=== PATIENT | male | born 1955 | race African-American/Black ===

== ENCOUNTER 2017-04-19 05:23 | Inpatient (IN) | payer MEDICARE, MEDICAID ==
[~2017-04-19] VITALS: Ht 175.3 cm; Wt 121.6 kg
[2017-04-19] VITALS (49 sets, daily range): BP systolic 126–190; BP diastolic 37–94
[~2017-04-19 05:23] MED LIST: ALBU18HF2 IH; AMLO10TA80 PO; ASPI-1073 PO; BRIN8DRO BOTHEYE; DIPH50CA47 PO; ERYT1OIN6 OP; FLUO20TA29 PO; GABA800T PO; HYDR-519 PO; IPRA0.2S51 IH; KETO5DRO37 BOTHEYE; LATA2.5D2 BOTHEYE; LEVE500T19 PO; LORA10TA7 PO; METF10002 PO; OMEP40CA34 PO; QUET50TA21 PO
[2017-04-19] MEDS ORDERED: GELATIN SPONGE,ABSORBABLE SZ 100 ONE (05:55)
[2017-04-19] MEDS ORDERED: LIDOCAINE HCL/PF 1% 10 MG/ML 5ML VIAL ONE (05:55)
[2017-04-19] MEDS ORDERED: THROMBIN (BOVINE) 5000 UNITS/VIAL TOP ONE (05:55)
[2017-04-19] MEDS ORDERED: BACITRACIN 50,000 UNITS/VIAL ONE (05:56)
[2017-04-19] MEDS ORDERED: BUPIVACAINE HCL/EPINEPHRINE/PF 0.5%/0.0005 10ML ONE (05:56)
[2017-04-19] MEDS ORDERED: NORMAL SALINE 0.9% 10 ML SYR ONE (05:56)
[2017-04-19] MEDS ORDERED: SODIUM CHLORIDE 0.9% 1,000 ML IV SCH (06:06)
[2017-04-19] MEDS ORDERED: MIDAZOLAM HCL 2 MG/2 ML VIAL ONE (06:20)
[2017-04-19] MEDS ORDERED: HYDROMORPHONE HCL/PF 2MG/ML (OR) ONE (06:20)
[2017-04-19] MEDS ORDERED: FENTANYL CITRATE/PF 50MCG/ML 5ML VIAL ONE (06:20)
[2017-04-19] MEDS ORDERED: LIDOCAINE HCL 1%/EPI 1:200,000 30 ML VIAL ONE (07:04)
[2017-04-19] MEDS ORDERED: MORP30TA66 PO (07:19)
[2017-04-19] MEDS ORDERED: IPRATROPIUM/ALBUTEROL 0.5-3(2.5)MG/3ML NEB INH PRN (08:30)
[2017-04-19] MEDS ORDERED: ACETAMINOPHEN 325MG TABLET PO PRN (08:30)
[2017-04-19] MEDS ORDERED: ONDANSETRON HCL 4MG/2ML VIAL IV PRN (08:30)
[2017-04-19] MEDS ORDERED: DEXT 5%/LACTATED RINGERS 1,000 ML IV ONE (08:30)
[2017-04-19] MEDS: NICARDIPINE 100 MG in SODIUM CHLORIDE 0.9% 60 ML IV PRN ×2 (09:40→20:49)
[2017-04-19] MEDS ORDERED: ONDANSETRON INJ IV PRN (10:00)
[2017-04-19] MEDS ORDERED: HYDROMORPHONE PCA 10MG/50ML IV PRN (10:00)
[2017-04-19] MEDS ORDERED: DIPHENHYDRAMINE INJ IV PRN (10:00)
[2017-04-19] MEDS ORDERED: NALOXONE INJ IV PRN (10:00)
[2017-04-19] MEDS ORDERED: CLONIDINE 0.1MG TABLET PO PRN (10:45)
[2017-04-19] MEDS ORDERED: BISACODYL 5MG TABLET PO PRN (10:45)
[2017-04-19] MEDS ORDERED: DEXTROSE 50% WATER 50ML SYRINGE IV PRN (10:45)
[2017-04-19] MEDS ORDERED: MORPHINE SULFATE 4 MG/ML CPJ (NOT FOR IM USE) IV PRN (10:45)
[2017-04-19] MEDS: BLOOD SUGAR DIAGNOSTIC STRIP TEST SCH ×3 (11:30→20:40)
[2017-04-19] MEDS: DOCUSATE SODIUM 250MG CAPSULE PO SCH (13:06)
[2017-04-19] MEDS: AMLODIPINE 10MG TABLET PO SCH (13:06)
[2017-04-19] MEDS: DEXAMETHASONE 4MG/ML 1ML VIAL IV SCH ×3 (13:07→23:14)
[2017-04-19] MEDS: INSULIN LISPRO 100 UNITS/ML SUBCUT SCH ×3 (13:10→20:36)
[2017-04-19] MEDS ORDERED: CEFAZOLIN SODIUM 1000MG/VIAL IV SCH (14:00)
[2017-04-19] MEDS: CEFAZOLIN 1000MG PREMIX 50 ML IV SCH ×2 (15:16→23:14)
[2017-04-19 17:22] LABS: BASOPHILS % 0.3 % (0.0-2.0); EOSINOPHILS % 0.9 % (0.0-5.0); HEMATOCRIT. 43.6 % (42.0-52.0); HEMOGLOBIN. 14.1 g/dL (14.0-18.0); LYMPHOCYTES % 11.1 % (20.0-50.0); MEAN CORPUSCULAR HEMOGLOBIN 26.1 pg (28.0-32.0); MEAN CORPUSCULAR VOLUME 80.8 fL (80.0-94.0); MEAN PLATELET VOLUME 8.7 fl (7.4-10.4); MONOCYTES % 3.4 % (2.0-8.0); NEUTROPHILS % 84.3 % (40.0-76.0); PLATELET 327 x1000/uL (130-400); RED CELL DISTRIBUTION WIDTH 16.9 % (11.6-14.6)
[2017-04-19] MEDS: LEVETIRACETAM 500MG TABLET PO SCH (17:27)
[2017-04-19 17:38] LABS: CHLORIDE 100 mEq/L (98-107)
[2017-04-19] MEDS: LATANOPROST 0.005% OPHTH DROPS 2.5ML BOTHEYE SCH (20:36)
[2017-04-19] MEDS: LORATADINE 10MG TABLET PO PRN (21:52)
[2017-04-19] MEDS: DIPHENHYDRAMINE 50MG/ML VIAL IV PRN (22:05)
[2017-04-19] MEDS: QUETIAPINE FUMARATE 50MG TABLET PO SCH (22:05)
[2017-04-20] VITALS (46 sets, daily range): BP systolic 113–173; BP diastolic 32–140
[2017-04-20] MEDS: NICARDIPINE 100 MG in SODIUM CHLORIDE 0.9% 60 ML IV PRN (04:58)
[2017-04-20 06:02] LABS: BASOPHILS % 0.4 % (0.0-2.0); HEMATOCRIT. 42.8 % (42.0-52.0); HEMOGLOBIN. 14.3 g/dL (14.0-18.0); MEAN CORPUSCULAR HEMOGLOBIN 26.7 pg (28.0-32.0); MEAN CORPUSCULAR VOLUME 80.2 fL (80.0-94.0); MEAN PLATELET VOLUME 8.8 fl (7.4-10.4); MONOCYTES % 2.5 % (2.0-8.0); NEUTROPHILS % 87.1 % (40.0-76.0); PLATELET 312 x1000/uL (130-400); RED BLOOD CELL COUNT 5.34 mill/uL (4.7-6.1); RED CELL DISTRIBUTION WIDTH 16.5 % (11.6-14.6)
[2017-04-20] MEDS: BLOOD SUGAR DIAGNOSTIC STRIP TEST SCH ×4 (06:15→20:22)
[2017-04-20] MEDS: DEXAMETHASONE 4MG/ML 1ML VIAL IV SCH ×2 (06:19→12:00)
[2017-04-20] MEDS: INSULIN LISPRO 100 UNITS/ML SUBCUT SCH ×4 (06:21→21:26)
[2017-04-20 06:26] LABS: CHLORIDE 99 mEq/L (98-107)
[2017-04-20] MEDS: DEXT 5%/LACTATED RINGERS 1,000 ML IV SCH ×2 (06:46→22:51)
[2017-04-20] MEDS: AMLODIPINE 10MG TABLET PO SCH (08:58)
[2017-04-20] MEDS: LEVETIRACETAM 500MG TABLET PO SCH ×2 (08:58→17:02)
[2017-04-20] MEDS: DOCUSATE SODIUM 250MG CAPSULE PO SCH (09:00)
[2017-04-20] MEDS ORDERED: NON FORMULARY PATIENT HOME MED EA XX SCH (09:30)
[2017-04-20] MEDS: HYDRALAZINE HCL 25MG TABLET PO SCH ×2 (11:34→17:43)
[2017-04-20] MEDS: HYDROCODONE/ACETAMINOPHEN 10/325MG TABLET PO PRN ×3 (11:35→21:15)
[2017-04-20] MEDS: LORATADINE 10MG TABLET PO PRN (11:35)
[2017-04-20] MEDS: KETOROLAC TROMETHAMINE 0.4% OPHTH 5ML EACHEYE SCH ×2 (17:41→20:17)
[2017-04-20] MEDS: DORZOLAMIDE 2% OPHTH 10 ML BOTTLE BOTHEYE SCH (20:15)
[2017-04-20] MEDS: BRIMONIDINE 0.2% OPHTH DROPS 5ML BOTHEYE SCH (20:16)
[2017-04-20] MEDS: LATANOPROST 0.005% OPHTH DROPS 2.5ML BOTHEYE SCH (20:16)
[2017-04-20] MEDS: QUETIAPINE FUMARATE 50MG TABLET PO SCH (20:18)
[2017-04-20] MEDS ORDERED: QUETIAPINE FUMARATE 50MG TABLET PO SCH (21:00)
[2017-04-20] MEDS: DIPHENHYDRAMINE 50MG/ML VIAL IV PRN (21:14)
[2017-04-20] MEDS: INSULIN GLARGINE UD 100 UNITS/ML SYR SUBCUT SCH (22:51)
[2017-04-21] VITALS: BP 159/69
[2017-04-21] MEDS: HYDRALAZINE HCL 25MG TABLET PO SCH ×2 (01:10→10:03)
[2017-04-21 04:00] VITALS: BP 158/71
[2017-04-21 06:36] LABS: BASOPHILS % 0.3 % (0.0-2.0); EOSINOPHILS % 0.1 % (0.0-5.0); HEMATOCRIT. 43.3 % (42.0-52.0); HEMOGLOBIN. 14.2 g/dL (14.0-18.0); LYMPHOCYTES % 14.5 % (20.0-50.0); MEAN CORPUSCULAR HEMOGLOBIN 26.1 pg (28.0-32.0); MEAN CORPUSCULAR VOLUME 79.9 fL (80.0-94.0); MEAN PLATELET VOLUME 9.2 fl (7.4-10.4); MONOCYTES % 8.7 % (2.0-8.0); NEUTROPHILS % 76.4 % (40.0-76.0); PLATELET 323 x1000/uL (130-400); RED BLOOD CELL COUNT 5.42 mill/uL (4.7-6.1); RED CELL DISTRIBUTION WIDTH 16.9 % (11.6-14.6)
[2017-04-21 07:01] LABS: CHLORIDE 101 mEq/L (98-107)
[2017-04-21] MEDS: BLOOD SUGAR DIAGNOSTIC STRIP TEST SCH (07:20)
[2017-04-21 08:00] VITALS: BP 131/90
[2017-04-21] MEDS: INSULIN LISPRO 100 UNITS/ML SUBCUT SCH (08:53)
[2017-04-21] MEDS: DORZOLAMIDE 2% OPHTH 10 ML BOTTLE BOTHEYE SCH (08:53)
[2017-04-21] MEDS: BRIMONIDINE 0.2% OPHTH DROPS 5ML BOTHEYE SCH (08:54)
[2017-04-21] MEDS: DOCUSATE SODIUM 250MG CAPSULE PO SCH (08:55)
[2017-04-21] MEDS: LEVETIRACETAM 500MG TABLET PO SCH (08:55)
[2017-04-21] MEDS: KETOROLAC TROMETHAMINE 0.4% OPHTH 5ML EACHEYE SCH (08:55)
[2017-04-21] MEDS: AMLODIPINE 10MG TABLET PO SCH (08:57)
[2017-04-21] MEDS: HYDROCODONE/ACETAMINOPHEN 10/325MG TABLET PO PRN (10:02)
[2017-04-21] MEDS: INSULIN GLARGINE UD 100 UNITS/ML SYR SUBCUT SCH (10:04)
[2017-04-21 10:19] VITALS: BP 131/90
== END 2017-04-21 11:09 | disposition home or self-care (01) | DRG 471 ==
LOC: OR 05:23 → MICUSO 05:24 → 6EST 04-20 18:10
PROVIDERS: ADMIT Internal Medicine; ATTEND Internal Medicine
PROC: 0RG10K0 Fusion of Cervical Vertebral Joint with Nonautologous Tissue Substitute, Anterior Approach, Anterior Column, Open Approach (ICD-10-PCS; 2017-04-19)
PROC: 4A11X4G Monitoring of Peripheral Nervous Electrical Activity, Intraoperative, External Approach (ICD-10-PCS; 2017-04-19)
PROC: 0RB30ZZ Excision of Cervical Vertebral Disc, Open Approach (ICD-10-PCS; principal; 2017-04-19 06:30)
DX: M47.12 Other spondylosis with myelopathy, cervical region (principal); G82.50 Quadriplegia, unspecified; G95.20 Unspecified cord compression; M48.02 Spinal stenosis, cervical region; C61 Malignant neoplasm of prostate; E11.9 Type 2 diabetes mellitus without complications; E78.5 Hyperlipidemia, unspecified; G56.00 Carpal tunnel syndrome, unspecified upper limb; H40.9 Unspecified glaucoma; I10 Essential (primary) hypertension; J45.909 Unspecified asthma, uncomplicated; M25.78 Osteophyte, vertebrae; Z86.79 Personal history of other diseases of the circulatory system; Z79.82 Long term (current) use of aspirin; Z79.899 Other long term (current) drug therapy
CPT/HCPCS: 36415; 71045; 72040; 80048; 82962; 83036; 85025; 86850; 86900; 88304; 88311; 97116; 97163; 97166; 97535; A4216; J0171; J0690; J1100; J1170; J1200; J1815; J2250; J2370; J2405; J2704; J2710; J3010; J3490; J7030; J7050; J7121

== ENCOUNTER → 2019-07-26 | Outpatient (CLI) | payer MEDICARE, MEDICAID ==
[~2019-07-26] MED LIST changes: +ATOR10TA69 PO; +HYDR-4009 PO; -HYDR-519 PO; -IPRA0.2S51 IH; +METF-416 PO; -METF10002 PO; +MORP30CP13 PO; -OMEP40CA34 PO; +QUET300T2 PO; -QUET50TA21 PO; +TAMS-11 PO; +TAMS0.4C31 PO
== END | disposition home or self-care (01) ==
LOC: LAB 14:16
PROVIDERS: ATTEND Neurological Surgery
DX: Z01.818 Encounter for other preprocedural examination (principal); Z11.59 Encounter for screening for other viral diseases
CPT/HCPCS: U0003-CS

== ENCOUNTER 2019-07-29 08:15 | Inpatient (IN) | payer MEDICARE, MEDICAID ==
[2019-07-29] VITALS (38 sets, daily range): BP systolic 135–186; BP diastolic 47–110
[~2019-07-29] VITALS: Ht 175.3 cm; Wt 109.8 kg
[~2019-07-29 08:15] MED LIST changes: -HYDR-4009 PO; -MORP30CP13 PO; -QUET300T2 PO
[2019-07-29] MEDS ORDERED: SODIUM CHLORIDE 0.9% 1,000 ML IV SCH (10:21)
[2019-07-29] MEDS ORDERED: BACITRACIN 50,000 UNITS/VIAL ONE (10:38)
[2019-07-29] MEDS ORDERED: LIDOCAINE HCL/EPINEPHRINE 1%-EPI 1:100,000 20 ML VIAL ONE (10:38)
[2019-07-29] MEDS ORDERED: THROMBIN (BOVINE) 5000 UNITS/VIAL TOP ONE (10:38)
[2019-07-29] MEDS ORDERED: MORP30CP13 PO (12:18)
[2019-07-29] MEDS ORDERED: HYDR-4009 PO (12:18)
[2019-07-29] MEDS ORDERED: QUET300T2 PO (12:18)
[2019-07-29] MEDS ORDERED: NEOSTIGMINE METHYLSULFATE 1MG/ML 10 ML VIAL ONE (12:34)
[2019-07-29] MEDS ORDERED: ROCURONIUM BROMIDE 10MG/ML VIAL 5ML IV ONE ×3 (12:34→13:17)
[2019-07-29] MEDS ORDERED: FENTANYL CITRATE/PF 50MCG/ML 2ML VIAL ONE ×2 (12:34→12:36)
[2019-07-29] MEDS ORDERED: PROPOFOL 200MG/20ML VIAL IV ONE (12:35)
[2019-07-29] MEDS ORDERED: GLYCOPYRROLATE 0.2 MG/ML 2ML VIAL ONE (12:35)
[2019-07-29] MEDS ORDERED: MIDAZOLAM HCL 2 MG/2 ML VIAL ONE (12:35)
[2019-07-29] MEDS ORDERED: DEXAMETHASONE 4MG/ML 1ML VIAL ONE (12:36)
[2019-07-29] MEDS ORDERED: ONDANSETRON HCL 4MG/2ML INJ ONE (12:36)
[2019-07-29] MEDS ORDERED: LABETALOL 5MG/ML SYR 20 MG/4 ML SYRINGE IV ONE (13:17)
[2019-07-29] MEDS ORDERED: HYDROMORPHONE HCL/PF 2MG/ML (OR) ONE (13:21)
[2019-07-29] MEDS ORDERED: ONDANSETRON HCL 4MG/2ML INJ IV PRN (13:45)
[2019-07-29] MEDS ORDERED: HYDROMORPHONE HCL/PF 2MG/ML CPJ IV PRN (13:45)
[2019-07-29] MEDS ORDERED: MEPERIDINE HCL/PF 25MG/ML CPJ IV PRN (13:45)
[2019-07-29] MEDS ORDERED: SODIUM CHLORIDE 0.9% 10ML VIAL ONE (14:28)
[2019-07-29] MEDS ORDERED: LIDOCAINE HCL/PF 1% 10 MG/ML 5ML VIAL ONE (14:28)
[2019-07-29] MEDS ORDERED: CEFAZOLIN SODIUM 1000MG/VIAL ONE (14:28)
[2019-07-29] MEDS ORDERED: EPHEDRINE SULFATE 50MG/ML VIAL ONE (14:28)
[2019-07-29] MEDS ORDERED: STERILE WATER FOR INJECTION 10ML VIAL ONE (14:29)
[2019-07-29] MEDS: LABETALOL 5MG/ML SYR 20 MG/4 ML SYRINGE IV PRN ×2 (15:21→15:46)
[2019-07-29] MEDS ORDERED: MORPHINE SULFATE 4 MG/ML CPJ (NOT FOR IM USE) IV PRN (15:45)
[2019-07-29] MEDS ORDERED: DEXT 5%/LACTATED RINGERS 1,000 ML IV SCH (15:45)
[2019-07-29] MEDS: DEXT 5%/LACTATED RINGERS 1,000 ML IV SCH (15:50)
[2019-07-29] MEDS: NICARDIPINE 100 MG in SODIUM CHLORIDE 0.9% 60 ML IV PRN ×2 (16:06→22:46)
[2019-07-29] MEDS ORDERED: NALOXONE INJ IV PRN (16:30)
[2019-07-29] MEDS ORDERED: ONDANSETRON INJ IV PRN (16:30)
[2019-07-29] MEDS ORDERED: HYDROMORPHONE PCA 10MG/50ML IV PRN (16:30)
[2019-07-29] MEDS: MORPHINE SULFATE 4 MG/ML CPJ (NOT FOR IM USE) IV PRN ×3 (17:25→23:11)
[2019-07-29] MEDS ORDERED: DEXTROSE 50% WATER 50ML SYRINGE IV PRN (17:45)
[2019-07-29] MEDS: DEXAMETHASONE 4MG/ML 1ML VIAL IV SCH ×2 (18:05→23:10)
[2019-07-29 19:44] LABS: BASOPHILS % 0.4 % (0.0-2.0); EOSINOPHILS % 0.3 % (0.0-5.0); HEMATOCRIT. 43.2 % (42.0-52.0); HEMOGLOBIN. 14.2 g/dL (14.0-18.0); LYMPHOCYTES % 8.2 % (20.0-50.0); MEAN CORPUSCULAR HEMOGLOBIN 26.6 pg (28.0-32.0); MEAN CORPUSCULAR VOLUME 80.6 fL (80.0-94.0); MONOCYTES % 1.4 % (2.0-8.0); NEUTROPHILS % 89.7 % (40.0-76.0); RED BLOOD CELL COUNT 5.36 mill/uL (4.7-6.1); RED CELL DISTRIBUTION WIDTH 17.8 % (11.6-14.6)
[2019-07-29 19:45] LABS: CHLORIDE 104 mEq/L (98-107)
[2019-07-29] MEDS ORDERED: IPRATROPIUM/ALBUTEROL 0.5-3(2.5)MG/3ML NEB HHN PRN (19:45)
[2019-07-29] MEDS: BLOOD SUGAR DIAGNOSTIC STRIP TEST SCH (20:06)
[2019-07-29] MEDS: HYDRALAZINE 20MG/ML VIAL IV PRN (20:10)
[2019-07-29] MEDS: INSULIN LISPRO 100 UNITS/ML SUBCUT SCH (20:11)
[2019-07-29] MEDS ORDERED: LEVETIRACETAM 500 MG in SODIUM CHLORIDE 0.9% 100 ML IV SCH (20:30)
[2019-07-29] MEDS: CEFAZOLIN 1000MG PREMIX 50 ML IV SCH (21:10)
[2019-07-29] MEDS: LEVETIRACETAM 500MG PREMIX 100 ML IV SCH (21:11)
[2019-07-29] MEDS: DIPHENHYDRAMINE INJ IV PRN (21:18)
[2019-07-29] MEDS ORDERED: CEFAZOLIN SODIUM 1000MG/VIAL IV SCH (22:00)
[2019-07-29 22:11] LABS: MEAN PLATELET VOLUME 8.4 fl (7.4-10.4); PLATELET 300 x1000/uL (130-400)
[2019-07-30] VITALS (90 sets, daily range): BP systolic 66–173; BP diastolic 31–106
[2019-07-30] MEDS ORDERED: HYDRALAZINE 20MG/ML VIAL IV SCH
[2019-07-30] MEDS: DIPHENHYDRAMINE INJ IV PRN ×2 (01:11→20:42)
[2019-07-30] MEDS: MORPHINE SULFATE 4 MG/ML CPJ (NOT FOR IM USE) IV PRN ×5 (01:11→20:21)
[2019-07-30] MEDS: DEXT 5%/LACTATED RINGERS 1,000 ML IV SCH ×3 (01:58→21:23)
[2019-07-30] MEDS: HYDRALAZINE 20MG/ML VIAL IV PRN ×3 (02:04→11:57)
[2019-07-30] MEDS: CEFAZOLIN 1000MG PREMIX 50 ML IV SCH ×3 (05:15→21:22)
[2019-07-30] MEDS: NICARDIPINE 100 MG in SODIUM CHLORIDE 0.9% 60 ML IV PRN ×2 (05:15→12:23)
[2019-07-30] MEDS: DEXAMETHASONE 4MG/ML 1ML VIAL IV SCH ×3 (05:16→17:21)
[2019-07-30 06:01] LABS: BASOPHILS % 0.1 % (0.0-2.0); CHLORIDE 104 mEq/L (98-107); HEMATOCRIT. 40.1 % (42.0-52.0); HEMOGLOBIN. 13.3 g/dL (14.0-18.0); LYMPHOCYTES % 7.5 % (20.0-50.0); MEAN CORPUSCULAR HEMOGLOBIN 26.9 pg (28.0-32.0); MEAN PLATELET VOLUME 8.8 fl (7.4-10.4); MONOCYTES % 3.6 % (2.0-8.0); NEUTROPHILS % 88.8 % (40.0-76.0); PLATELET 141 x1000/uL (130-400); RED BLOOD CELL COUNT 4.96 mill/uL (4.7-6.1); RED CELL DISTRIBUTION WIDTH 17.5 % (11.6-14.6)
[2019-07-30] MEDS: BLOOD SUGAR DIAGNOSTIC STRIP TEST SCH ×4 (06:01→20:12)
[2019-07-30] MEDS: INSULIN LISPRO 100 UNITS/ML SUBCUT SCH ×4 (06:02→20:43)
[2019-07-30] MEDS: LEVETIRACETAM 500MG PREMIX 100 ML IV SCH (08:43)
[2019-07-30] MEDS ORDERED: LEVETIRACETAM 500MG TABLET PO SCH (11:15)
[2019-07-30] MEDS: AMLODIPINE 10MG TABLET PO SCH ×2 (11:35→20:20)
[2019-07-30] MEDS: HYDROCODONE/ACETAMINOPHEN 10/325MG TABLET PO PRN ×3 (11:35→21:23)
[2019-07-30] MEDS: LORATADINE 10MG TABLET PO SCH (11:35)
[2019-07-30] MEDS: LEVETIRACETAM 500MG TABLET PO SCH (17:22)
[2019-07-30] MEDS: ATORVASTATIN CALCIUM 10MG TABLET PO SCH (20:20)
[2019-07-30] MEDS: TAMSULOSIN HCL 0.4MG SR CAPSULE PO SCH (20:20)
[2019-07-30] MEDS: QUETIAPINE FUMARATE 50MG TABLET PO SCH (20:23)
[2019-07-31] VITALS (73 sets, daily range): BP systolic 105–169; BP diastolic 53–92
[2019-07-31] MEDS: MORPHINE SULFATE 4 MG/ML CPJ (NOT FOR IM USE) IV PRN ×3 (00:30→22:20)
[2019-07-31] MEDS: HYDROCODONE/ACETAMINOPHEN 10/325MG TABLET PO PRN ×4 (01:31→17:58)
[2019-07-31 05:36] LABS: HEMATOCRIT. 38.6 % (42.0-52.0); MEAN CORPUSCULAR HEMOGLOBIN 26.9 pg (28.0-32.0); MEAN CORPUSCULAR VOLUME 79.7 fL (80.0-94.0); MEAN PLATELET VOLUME 8.2 fl (7.4-10.4); PLATELET 291 x1000/uL (130-400); RED BLOOD CELL COUNT 4.85 mill/uL (4.7-6.1); RED CELL DISTRIBUTION WIDTH 17.2 % (11.6-14.6)
[2019-07-31] MEDS: BLOOD SUGAR DIAGNOSTIC STRIP TEST SCH ×4 (05:40→21:00)
[2019-07-31 05:47] LABS: CHLORIDE 103 mEq/L (98-107)
[2019-07-31] MEDS: INSULIN LISPRO 100 UNITS/ML SUBCUT SCH ×4 (06:02→22:17)
[2019-07-31] MEDS: LORATADINE 10MG TABLET PO SCH (09:10)
[2019-07-31] MEDS: DEXT 5%/LACTATED RINGERS 1,000 ML IV SCH (09:10)
[2019-07-31] MEDS: LEVETIRACETAM 500MG TABLET PO SCH ×2 (09:12→17:57)
[2019-07-31] MEDS: AMLODIPINE 10MG TABLET PO SCH ×2 (09:12→22:00)
[2019-07-31] MEDS: DOCUSATE SODIUM 100MG CAPSULE PO SCH (12:12)
[2019-07-31 13:14] LABS: PLATELET ESTIMATE NORMAL
[2019-07-31 19:43] LABS: CLARITY URINE CLEAR (CLEAR); COLOR URINE YELLOW (YELLOW); KETONES URINE NEGATIVE (NEGATIVE); LEUKOCYTE ESTERASE URINE NEGATIVE (NEGATIVE); NITRITE URINE NEGATIVE (NEGATIVE); OCCULT BLOOD URINE NEGATIVE (NEGATIVE); PROTEIN URINE NEGATIVE (NEGATIVE); SPECIFIC GRAVITY URINE 1.009 (1.005-1.030); UROBILINOGEN URINE 0.2 E.U./dL (0.2-1.0)
[2019-07-31] MEDS ORDERED: QUETIAPINE FUMARATE 50MG TABLET PO SCH (21:00)
[2019-07-31] MEDS ORDERED: HYDRALAZINE 10 MG in SODIUM CHLORIDE 0.9% 49.5 ML IV PRN (21:15)
[2019-07-31] MEDS: TAMSULOSIN HCL 0.4MG SR CAPSULE PO SCH (22:00)
[2019-07-31] MEDS: ATORVASTATIN CALCIUM 10MG TABLET PO SCH (22:01)
[2019-07-31] MEDS: QUETIAPINE FUMARATE 50MG TABLET PO SCH (22:02)
[2019-08-01 04:00] VITALS: BP 164/77
[2019-08-01] MEDS: BLOOD SUGAR DIAGNOSTIC STRIP TEST SCH ×4 (06:25→21:27)
[2019-08-01 06:48] LABS: CHLORIDE 104 mEq/L (98-107)
[2019-08-01 06:57] LABS: BASOPHILS % 0.3 % (0.0-2.0); EOSINOPHILS % 0.4 % (0.0-5.0); HEMATOCRIT. 41.4 % (42.0-52.0); HEMOGLOBIN. 14.1 g/dL (14.0-18.0); LYMPHOCYTES % 21.6 % (20.0-50.0); MEAN CORPUSCULAR VOLUME 79.5 fL (80.0-94.0); MEAN PLATELET VOLUME 8.4 fl (7.4-10.4); MONOCYTES % 10.4 % (2.0-8.0); NEUTROPHILS % 67.3 % (40.0-76.0); PLATELET 315 x1000/uL (130-400); RED BLOOD CELL COUNT 5.21 mill/uL (4.7-6.1); RED CELL DISTRIBUTION WIDTH 17.2 % (11.6-14.6)
[2019-08-01 08:00] VITALS: BP 121/77
[2019-08-01] MEDS: INSULIN LISPRO 100 UNITS/ML SUBCUT SCH ×4 (08:49→21:36)
[2019-08-01] MEDS: LORATADINE 10MG TABLET PO SCH (08:58)
[2019-08-01] MEDS: HYDROCODONE/ACETAMINOPHEN 10/325MG TABLET PO PRN ×3 (08:58→21:22)
[2019-08-01] MEDS: DOCUSATE SODIUM 100MG CAPSULE PO SCH (08:59)
[2019-08-01] MEDS: AMLODIPINE 10MG TABLET PO SCH ×2 (08:59→21:24)
[2019-08-01] MEDS: LEVETIRACETAM 500MG TABLET PO SCH ×2 (08:59→17:27)
[2019-08-01] MEDS: MORPHINE SULFATE 4 MG/ML CPJ (NOT FOR IM USE) IV PRN ×2 (11:26→17:28)
[2019-08-01 12:00] VITALS: BP 118/73
[2019-08-01 16:00] VITALS: BP 121/86
[2019-08-01 20:00] VITALS: BP 126/78
[2019-08-01] MEDS ORDERED: POLYETHYLENE GLYCOL 3350 (17GM) 1 DOSE PACK PO SCH (21:00)
[2019-08-01] MEDS: ATORVASTATIN CALCIUM 10MG TABLET PO SCH (21:21)
[2019-08-01] MEDS: QUETIAPINE FUMARATE 50MG TABLET PO SCH (21:22)
[2019-08-01] MEDS: TAMSULOSIN HCL 0.4MG SR CAPSULE PO SCH (21:23)
[2019-08-02] VITALS: BP 120/71
[2019-08-02 04:00] VITALS: BP 153/77
[2019-08-02] MEDS: BLOOD SUGAR DIAGNOSTIC STRIP TEST SCH ×2 (06:28→12:21)
[2019-08-02 06:31] LABS: CHLORIDE 103 mEq/L (98-107)
[2019-08-02 06:34] LABS: BASOPHILS % 0.4 % (0.0-2.0); HEMATOCRIT. 41.7 % (42.0-52.0); HEMOGLOBIN. 13.9 g/dL (14.0-18.0); LYMPHOCYTES % 25.9 % (20.0-50.0); MEAN CORPUSCULAR HEMOGLOBIN 26.6 pg (28.0-32.0); MEAN CORPUSCULAR VOLUME 80.1 fL (80.0-94.0); MEAN PLATELET VOLUME 8.3 fl (7.4-10.4); MONOCYTES % 11.5 % (2.0-8.0); NEUTROPHILS % 60.2 % (40.0-76.0); PLATELET 311 x1000/uL (130-400); RED BLOOD CELL COUNT 5.21 mill/uL (4.7-6.1); RED CELL DISTRIBUTION WIDTH 17.1 % (11.6-14.6)
[2019-08-02 08:00] VITALS: BP 123/76
[2019-08-02] MEDS ORDERED: DOCUSATE SODIUM 100MG CAPSULE PO SCH (09:00)
[2019-08-02] MEDS: AMLODIPINE 10MG TABLET PO SCH (09:02)
[2019-08-02] MEDS: HYDROCODONE/ACETAMINOPHEN 10/325MG TABLET PO PRN (09:02)
[2019-08-02] MEDS: LEVETIRACETAM 500MG TABLET PO SCH (09:02)
[2019-08-02] MEDS: INSULIN LISPRO 100 UNITS/ML SUBCUT SCH ×2 (09:10→12:43)
[2019-08-02] MEDS: LORATADINE 10MG TABLET PO SCH (09:32)
[2019-08-02] MEDS: MORPHINE SULFATE 4 MG/ML CPJ (NOT FOR IM USE) IV PRN (11:42)
[2019-08-02 12:00] VITALS: BP 113/51
[2019-08-02] MEDS ORDERED: HYDR-4009 PO (13:48)
[2019-08-02 15:34] VITALS: BP 113/51
== END 2019-08-02 16:40 | disposition home or self-care (01) | DRG 471 ==
LOC: OR 08:15 → MICUSO 15:05 → 6EST 07-31 20:42
PROVIDERS: ADMIT Neurological Surgery; ATTEND Neurological Surgery
PROC: 0RG2071 Fusion of 2 or more Cervical Vertebral Joints with Autologous Tissue Substitute, Posterior Approach, Posterior Column, Open Approach (ICD-10-PCS; principal; 2019-07-29)
PROC: 0RB30ZZ Excision of Cervical Vertebral Disc, Open Approach (ICD-10-PCS; 2019-07-29)
PROC: 00NW0ZZ Release Cervical Spinal Cord, Open Approach (ICD-10-PCS; 2019-07-29)
PROC: 4A11X4G Monitoring of Peripheral Nervous Electrical Activity, Intraoperative, External Approach (ICD-10-PCS; 2019-07-29)
DX: M48.02 Spinal stenosis, cervical region (principal); G82.50 Quadriplegia, unspecified; M47.12 Other spondylosis with myelopathy, cervical region; M54.12 Radiculopathy, cervical region; E11.9 Type 2 diabetes mellitus without complications; I10 Essential (primary) hypertension; G40.909 Epilepsy, unspecified, not intractable, without status epilepticus; E78.5 Hyperlipidemia, unspecified; G89.4 Chronic pain syndrome; M17.11 Unilateral primary osteoarthritis, right knee; N40.0 Benign prostatic hyperplasia without lower urinary tract symptoms; Z96.659 Presence of unspecified artificial knee joint; Z82.49 Family history of ischemic heart disease and other diseases of the circulatory system; Z86.79 Personal history of other diseases of the circulatory system; Z87.891 Personal history of nicotine dependence
CPT/HCPCS: 36415; 72040; 72141; 76000; 80048; 80053; 81003; 82962; 83036; 85025; 86850; 86900; 88304; 88311; 94002; 97116; 97162; 97166; 97530; 97535; A4216; C1713; J0360; J0690; J1100; J1170; J1200; J1815; J1953; J2250; J2270; J2405; J2704; J2710; J3010; J3490; J7050; J7121; L0172

== ENCOUNTER 2019-08-12 06:36 | Inpatient (IN) | payer MEDICARE, MEDICAID ==
[~2019-08-12] VITALS: Ht 175.3 cm; Wt 106.6 kg
[~2019-08-12 06:36] MED LIST changes: -ERYT1OIN6 OP; -GABA800T PO; +HYDR-4009 PO; -LATA2.5D2 BOTHEYE; +MORP30CP13 PO; +QUET300T2 PO; -TAMS0.4C31 PO
[2019-08-12] MEDS ORDERED: KETOROLAC 60MG/2ML VIAL IM ONE (07:30)
[2019-08-12] MEDS ORDERED: MORPHINE SULFATE 4 MG/ML CPJ (NOT FOR IM USE) IV STA (09:40)
[2019-08-12] MEDS ORDERED: ONDANSETRON HCL 4MG/2ML INJ IV STA (09:40)
[2019-08-12] MEDS ORDERED: ASPIRIN 81MG TABLET PO ONE (09:45)
[2019-08-12 10:31] LABS: BASOPHILS % 1.1 % (0.0-2.0); EOSINOPHILS % 0.7 % (0.0-5.0); HEMATOCRIT. 37.7 % (42.0-52.0); HEMOGLOBIN. 12.6 g/dL (14.0-18.0); MEAN CORPUSCULAR HEMOGLOBIN 26.9 pg (28.0-32.0); MEAN CORPUSCULAR VOLUME 80.4 fL (80.0-94.0); MONOCYTES % 6.6 % (2.0-8.0); NEUTROPHILS % 76.6 % (40.0-76.0); PLATELET 530 x1000/uL (130-400); RED BLOOD CELL COUNT 4.69 mill/uL (4.7-6.1); RED CELL DISTRIBUTION WIDTH 16.1 % (11.6-14.6)
[2019-08-12 10:39] LABS: CHLORIDE 104 mEq/L (98-107)
[2019-08-12 10:43] LABS: ETHANOL BLOOD < 10 mg/dL
[2019-08-12 10:47] LABS: INR 1.1; PROTHROMBIN TIME 11.4 sec (9.6-11.0)
[2019-08-12 11:12] LABS: *AMPHETAMINES SCREEN URINE NEGATIVE (NEGATIVE); *BARBITURATES SCREEN URINE NEGATIVE (NEGATIVE); *BENZODIAZEPINES SCREEN URINE NEGATIVE (NEGATIVE); *COCAINE SCREEN URINE NEGATIVE (NEGATIVE); METHADONE URINE SCREEN NEGATIVE (NEGATIVE); OPIATES URINE SCREEN PRESUMTIVE POSITIVE (NEGATIVE)
[2019-08-12 11:13] LABS: CANNABINOID URINE SCREEN NEGATIVE (NEGATIVE); PHENCYCLIDINE URINE SCREEN NEGATIVE (NEGATIVE)
[2019-08-12] MEDS ORDERED: THROMBIN (BOVINE) 5000 UNITS/VIAL TOP ONE ×2 (11:20→11:21)
[2019-08-12] MEDS ORDERED: LIDOCAINE HCL/EPINEPHRINE 1%-EPI 1:100,000 20 ML VIAL ONE (11:20)
[2019-08-12] MEDS ORDERED: NORMAL SALINE 0.9% 10 ML SYR ONE (11:20)
[2019-08-12] MEDS ORDERED: BACITRACIN 50,000 UNITS/VIAL ONE (11:21)
[2019-08-12] MEDS ORDERED: GABAPENTIN 300MG CAPSULE PO ONE (11:45)
[2019-08-12] MEDS ORDERED: FENTANYL CITRATE/PF 50MCG/ML 2ML VIAL ONE (12:42)
[2019-08-12] MEDS ORDERED: MIDAZOLAM HCL 2 MG/2 ML VIAL ONE (12:42)
[2019-08-12] MEDS ORDERED: PROPOFOL 200MG/20ML VIAL IV ONE (12:42)
[2019-08-12] MEDS ORDERED: METOCLOPRAMIDE HCL 10MG/2ML VIAL ONE ×2 (12:44→13:01)
[2019-08-12] MEDS ORDERED: SUCCINYLCHOLINE CHLORIDE 200MG/10ML IV ONE (12:45)
[2019-08-12] MEDS ORDERED: ROCURONIUM BROMIDE 10MG/ML VIAL 5ML IV ONE (12:45)
[2019-08-12] MEDS ORDERED: ONDANSETRON HCL 4MG/2ML INJ ONE (13:01)
[2019-08-12] MEDS ORDERED: LIDOCAINE HCL/PF 1% 10 MG/ML 5ML VIAL ONE (13:01)
[2019-08-12] MEDS ORDERED: ONDANSETRON HCL 4MG/2ML INJ IV PRN ×3 (13:45→16:45)
[2019-08-12] MEDS ORDERED: HYDROMORPHONE HCL/PF 2MG/ML CPJ IV PRN (13:45)
[2019-08-12] MEDS ORDERED: MEPERIDINE HCL/PF 25MG/ML CPJ IV PRN (13:45)
[2019-08-12] MEDS ORDERED: GLYCOPYRROLATE 0.2 MG/ML 2ML VIAL ONE (13:48)
[2019-08-12] MEDS ORDERED: KETOROLAC 30MG/ML VIAL ONE (13:51)
[2019-08-12] MEDS ORDERED: DEXAMETHASONE 4MG/ML 1ML VIAL ONE (13:51)
[2019-08-12] MEDS ORDERED: MORPHINE SULFATE 4 MG/ML CPJ (NOT FOR IM USE) IV PRN (14:00)
[2019-08-12] MEDS ORDERED: NICARDIPINE 100 MG in SODIUM CHLORIDE 0.9% 60 ML IV PRN (14:00)
[2019-08-12] MEDS ORDERED: HYDRALAZINE 20MG/ML VIAL IV PRN (14:45)
[2019-08-12] MEDS: DEXT 5%/LACTATED RINGERS 1,000 ML IV SCH (15:17)
[2019-08-12] MEDS ORDERED: HYDRALAZINE 20MG/ML VIAL IV ONE (15:30)
[2019-08-12] MEDS ORDERED: CLONIDINE 0.1MG TABLET PO PRN (16:45)
[2019-08-12] MEDS ORDERED: IPRATROPIUM/ALBUTEROL 0.5-3(2.5)MG/3ML NEB HHN PRN (16:45)
[2019-08-12] MEDS ORDERED: ACETAMINOPHEN 325MG TABLET PO PRN (16:45)
[2019-08-12] MEDS: AMLODIPINE 10MG TABLET PO SCH (17:16)
[2019-08-12 17:45] VITALS: BP 161/80
[2019-08-12 18:30] VITALS: BP 142/64
[2019-08-12] MEDS: LORATADINE 10MG TABLET PO SCH (19:00)
[2019-08-12 20:00] VITALS: BP 159/80
[2019-08-12] MEDS ORDERED: CEFAZOLIN 1000MG PREMIX 50 ML IV SCH (20:00)
[2019-08-12] MEDS ORDERED: QUETIAPINE FUMARATE 50MG TABLET PO SCH (21:00)
[2019-08-12] MEDS: METFORMIN HCL 500MG TABLET PO SCH (22:16)
[2019-08-12] MEDS: ATORVASTATIN CALCIUM 10MG TABLET PO SCH (22:16)
[2019-08-12] MEDS: TAMSULOSIN HCL 0.4MG SR CAPSULE PO SCH (22:17)
[2019-08-12] MEDS: DOCUSATE SODIUM 100MG CAPSULE PO PRN (22:17)
[2019-08-12] MEDS: LEVETIRACETAM 500MG TABLET PO SCH (22:17)
[2019-08-12] MEDS: HYDROCODONE/ACETAMINOPHEN 5/325MG TABLET PO PRN (22:17)
[2019-08-12] MEDS: DEXAMETHASONE 4MG/ML 1ML VIAL IV SCH (22:18)
[2019-08-13] VITALS: BP 149/82
[2019-08-13] MEDS ORDERED: DEXTROSE 50% WATER 50ML SYRINGE IV PRN (03:00)
[2019-08-13 04:00] VITALS: BP 158/90
[2019-08-13] MEDS: DEXAMETHASONE 4MG/ML 1ML VIAL IV SCH ×4 (05:38→18:02)
[2019-08-13 06:35] LABS: BASOPHILS % 0.3 % (0.0-2.0); HEMATOCRIT. 36.7 % (42.0-52.0); HEMOGLOBIN. 12.1 g/dL (14.0-18.0); LYMPHOCYTES % 9.6 % (20.0-50.0); MEAN CORPUSCULAR HEMOGLOBIN 26.6 pg (28.0-32.0); MEAN CORPUSCULAR VOLUME 80.5 fL (80.0-94.0); MONOCYTES % 4.6 % (2.0-8.0); NEUTROPHILS % 85.5 % (40.0-76.0); PLATELET 452 x1000/uL (130-400); RED BLOOD CELL COUNT 4.56 mill/uL (4.7-6.1); RED CELL DISTRIBUTION WIDTH 15.7 % (11.6-14.6)
[2019-08-13 06:55] LABS: CHLORIDE 104 mEq/L (98-107)
[2019-08-13] MEDS: BLOOD SUGAR DIAGNOSTIC STRIP TEST SCH ×3 (07:20→20:40)
[2019-08-13 08:00] VITALS: BP 110/92
[2019-08-13] MEDS: LORATADINE 10MG TABLET PO SCH (09:13)
[2019-08-13] MEDS: METFORMIN HCL 500MG TABLET PO SCH ×2 (09:13→18:05)
[2019-08-13] MEDS: LEVETIRACETAM 500MG TABLET PO SCH ×2 (09:13→18:02)
[2019-08-13] MEDS: FLUOXETINE HCL 20MG CAPSULE PO SCH (09:13)
[2019-08-13] MEDS: AMLODIPINE 10MG TABLET PO SCH (09:13)
[2019-08-13] MEDS: HYDROCODONE/ACETAMINOPHEN 5/325MG TABLET PO PRN ×2 (09:21→18:06)
[2019-08-13] MEDS: INSULIN LISPRO 100 UNITS/ML SUBCUT SCH ×4 (09:22→20:41)
[2019-08-13] MEDS: DEXT 5%/LACTATED RINGERS 1,000 ML IV SCH ×2 (10:00)
[2019-08-13] MEDS: CEFAZOLIN 1000MG PREMIX 50 ML IV SCH ×2 (11:10→18:02)
[2019-08-13 12:00] VITALS: BP 140/72
[2019-08-13 16:00] VITALS: BP 128/74
[2019-08-13 20:00] VITALS: BP 135/76
[2019-08-13] MEDS: TAMSULOSIN HCL 0.4MG SR CAPSULE PO SCH (20:37)
[2019-08-13] MEDS: ATORVASTATIN CALCIUM 10MG TABLET PO SCH (20:37)
[2019-08-13] MEDS: QUETIAPINE FUMARATE 50MG TABLET PO SCH (20:39)
[2019-08-13] MEDS: LORAZEPAM 0.5MG TABLET PO PRN (20:51)
[2019-08-14] VITALS: BP 119/80
[2019-08-14 04:00] VITALS: BP 161/89
[2019-08-14] MEDS: DEXT 5%/LACTATED RINGERS 1,000 ML IV SCH (05:18)
[2019-08-14] MEDS: BLOOD SUGAR DIAGNOSTIC STRIP TEST SCH ×4 (06:21→20:50)
[2019-08-14] MEDS ORDERED: ROCURONIUM BROMIDE 10MG/ML VIAL 5ML IV ONE (07:05)
[2019-08-14] MEDS: INSULIN LISPRO 100 UNITS/ML SUBCUT SCH ×3 (07:50→21:09)
[2019-08-14 08:00] VITALS: BP 125/62
[2019-08-14] MEDS: LORATADINE 10MG TABLET PO SCH (08:50)
[2019-08-14] MEDS: LEVETIRACETAM 500MG TABLET PO SCH ×2 (08:50→17:31)
[2019-08-14] MEDS: AMLODIPINE 10MG TABLET PO SCH (08:51)
[2019-08-14] MEDS: FLUOXETINE HCL 20MG CAPSULE PO SCH (08:51)
[2019-08-14] MEDS: METFORMIN HCL 500MG TABLET PO SCH ×2 (08:51→17:32)
[2019-08-14] MEDS: HYDROCODONE/ACETAMINOPHEN 5/325MG TABLET PO PRN ×3 (08:51→22:18)
[2019-08-14] MEDS: CEFAZOLIN 1000MG PREMIX 50 ML IV SCH ×3 (08:53→15:42)
[2019-08-14 12:00] VITALS: BP 121/62
[2019-08-14] MEDS: DOCUSATE SODIUM 100MG CAPSULE PO PRN (15:48)
[2019-08-14 16:00] VITALS: BP 149/79
[2019-08-14 20:28] VITALS: BP 136/83
[2019-08-14] MEDS: TAMSULOSIN HCL 0.4MG SR CAPSULE PO SCH (20:43)
[2019-08-14] MEDS: ATORVASTATIN CALCIUM 10MG TABLET PO SCH (20:43)
[2019-08-14] MEDS: QUETIAPINE FUMARATE 50MG TABLET PO SCH (20:44)
[2019-08-14] MEDS: LORAZEPAM 0.5MG TABLET PO PRN (21:07)
[2019-08-15 00:30] VITALS: BP 99/65
[2019-08-15 04:00] VITALS: BP 120/81
[2019-08-15] MEDS: BLOOD SUGAR DIAGNOSTIC STRIP TEST SCH ×4 (06:20→20:52)
[2019-08-15] MEDS: INSULIN LISPRO 100 UNITS/ML SUBCUT SCH ×4 (07:50→20:59)
[2019-08-15 08:00] VITALS: BP 142/72
[2019-08-15] MEDS: FLUOXETINE HCL 20MG CAPSULE PO SCH (10:57)
[2019-08-15] MEDS: METFORMIN HCL 500MG TABLET PO SCH ×2 (10:57→18:18)
[2019-08-15] MEDS: LEVETIRACETAM 500MG TABLET PO SCH ×2 (10:58→18:18)
[2019-08-15] MEDS: LORATADINE 10MG TABLET PO SCH (10:58)
[2019-08-15] MEDS: AMLODIPINE 10MG TABLET PO SCH (10:58)
[2019-08-15] MEDS: HYDROCODONE/ACETAMINOPHEN 5/325MG TABLET PO PRN ×3 (11:02→21:03)
[2019-08-15 12:00] VITALS: BP 148/89
[2019-08-15] MEDS: HYDRALAZINE 5 MG in SODIUM CHLORIDE 0.9% 49.75 ML IV PRN ×2 (13:58→18:19)
[2019-08-15 16:00] VITALS: BP 147/84
[2019-08-15 20:00] VITALS: BP 120/66
[2019-08-15] MEDS: ATORVASTATIN CALCIUM 10MG TABLET PO SCH (21:01)
[2019-08-15] MEDS: TAMSULOSIN HCL 0.4MG SR CAPSULE PO SCH (21:02)
[2019-08-15] MEDS: QUETIAPINE FUMARATE 50MG TABLET PO SCH (21:03)
[2019-08-16] VITALS: BP 134/84
[2019-08-16 04:00] VITALS: BP 150/87
[2019-08-16] MEDS: HYDRALAZINE 5 MG in SODIUM CHLORIDE 0.9% 49.75 ML IV PRN (05:40)
[2019-08-16] MEDS: BLOOD SUGAR DIAGNOSTIC STRIP TEST SCH ×2 (06:45→12:53)
[2019-08-16 06:51] LABS: BASOPHILS % 0.9 % (0.0-2.0); EOSINOPHILS % 4.7 % (0.0-5.0); HEMATOCRIT. 37.6 % (42.0-52.0); HEMOGLOBIN. 12.6 g/dL (14.0-18.0); MEAN CORPUSCULAR HEMOGLOBIN 26.8 pg (28.0-32.0); MEAN CORPUSCULAR VOLUME 80.2 fL (80.0-94.0); MONOCYTES % 8.2 % (2.0-8.0); NEUTROPHILS % 56.2 % (40.0-76.0); PLATELET 473 x1000/uL (130-400); RED BLOOD CELL COUNT 4.69 mill/uL (4.7-6.1); RED CELL DISTRIBUTION WIDTH 16.2 % (11.6-14.6)
[2019-08-16 07:08] LABS: CHLORIDE 106 mEq/L (98-107)
[2019-08-16] MEDS: INSULIN LISPRO 100 UNITS/ML SUBCUT SCH ×2 (07:50→12:50)
[2019-08-16] MEDS: FLUOXETINE HCL 20MG CAPSULE PO SCH (08:43)
[2019-08-16] MEDS: LEVETIRACETAM 500MG TABLET PO SCH (08:43)
[2019-08-16] MEDS: LORATADINE 10MG TABLET PO SCH (08:43)
[2019-08-16] MEDS: METFORMIN HCL 500MG TABLET PO SCH (08:43)
[2019-08-16] MEDS: AMLODIPINE 10MG TABLET PO SCH (08:52)
[2019-08-16] MEDS: HYDROCODONE/ACETAMINOPHEN 5/325MG TABLET PO PRN (09:32)
[2019-08-16 13:45] VITALS: BP 146/79
== END 2019-08-16 17:00 | disposition home or self-care (01) | DRG 907 ==
LOC: ER 06:36 → EDBEDREQTM 10:55 → EDBEDREQ 10:55 → ER 11:30 → ORIP 11:37 → EDBEDREQTM 11:44 → EDBEDREQ 11:44 → 6EST 17:33
PROVIDERS: ADMIT Neurological Surgery; ATTEND Internal Medicine
PROC: 009U0ZZ Drainage of Spinal Canal, Open Approach (ICD-10-PCS; principal; 2019-08-12)
DX: G97.61 Postprocedural hematoma of a nervous system organ or structure following a nervous system procedure (principal); G82.50 Quadriplegia, unspecified; G40.909 Epilepsy, unspecified, not intractable, without status epilepticus; I10 Essential (primary) hypertension; G47.00 Insomnia, unspecified; E11.9 Type 2 diabetes mellitus without complications; J45.909 Unspecified asthma, uncomplicated; Y83.8 Other surgical procedures as the cause of abnormal reaction of the patient, or of later complication, without mention of misadventure at the time of the procedure; R94.31 Abnormal electrocardiogram [ECG] [EKG]; Y92.89 Other specified places as the place of occurrence of the external cause; Z98.1 Arthrodesis status; Z79.899 Other long term (current) drug therapy; Z87.891 Personal history of nicotine dependence; Z79.82 Long term (current) use of aspirin
CPT/HCPCS: 36415; 71045; 72040; 72141; 76000; 80048; 80053; 80305; 80320; 82962; 83036; 84484; 85025; 87070; 87075; 93005; 97116; 97162; 97530; 99285; J0330; J0360; J0690; J1100; J1815; J1885; J2250; J2270; J2405; J2704; J2765; J3010; J3490; L0172; G0480

== ENCOUNTER → 2022-03-24 | Outpatient (CLI) | payer MEDICARE, MEDICAID ==
[~2022-03-24] MED LIST changes: -ASPI-1073 PO; +DIPH-892 PO; -DIPH50CA47 PO; -HYDR-4009 PO; -KETO5DRO37 BOTHEYE; -MORP30CP13 PO
== END | disposition home or self-care (01) ==
LOC: MRI 10:53
PROVIDERS: ATTEND Neurological Surgery
DX: M51.35 Other intervertebral disc degeneration, thoracolumbar region (principal); M24.28 Disorder of ligament, vertebrae; M25.78 Osteophyte, vertebrae; M48.061 Spinal stenosis, lumbar region without neurogenic claudication
CPT/HCPCS: 72148

== ENCOUNTER 2023-09-28 03:08 | Emergency (ER) | payer BC, MEDICAID, MEDICARE ==
[~2023-09-28] VITALS: Ht 175.3 cm; Wt 109.8 kg
[~2023-09-28 03:08] MED LIST changes: -DIPH-892 PO; +DIPH-954 PO
[2023-09-28] MEDS ORDERED: FLUT9.9S BOTHNSTRLS (06:11)
[2023-09-28] MEDS ORDERED: P20 PO (06:11)
[2023-09-28] MEDS: PREDNISONE 20MG TABLET PO STA (06:25)
[2023-09-28] MEDS: IPRATROPIUM BROMIDE (0.02%) 0.5MG/2.5ML NEB HHN STA (06:27)
[2023-09-28 06:28] VITALS: BP 130/79; PULSE 100; RESP 20; TEMP 36.61404; O2SAT 100; O2SAT 95
[2023-09-28] MEDS: ALBUTEROL (0.083%) 2.5MG/3ML NEB HHN STA (06:28)
== END 2023-09-28 06:31 | disposition home or self-care (01) ==
LOC: ER 03:44
DX: J45.901 Unspecified asthma with (acute) exacerbation (principal); I10 Essential (primary) hypertension; E11.9 Type 2 diabetes mellitus without complications; Z79.899 Other long term (current) drug therapy; Z98.890 Other specified postprocedural states; Z86.59 Personal history of other mental and behavioral disorders
CPT/HCPCS: 99285; 94644; J7512; 94640